=== PATIENT | male | born 1980 | race African-American/Black ===

== ENCOUNTER 2016-12-18 14:57 | Outpatient (CLI) | payer OTHER ==
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
== END 2016-12-18 14:58 | disposition home or self-care (01) ==
LOC: MRI 14:57
PROVIDERS: ATTEND Family Medicine
DX: S63.501D Unspecified sprain of right wrist, subsequent encounter (principal)

== ENCOUNTER 2018-02-09 23:17 | Observation (INO) | payer BC, OTHER ==
[~2018-02-09 23:17] MED LIST: Iopamidol 370 76% 100 ML VIAL ONE
[2018-02-09 23:49] LABS: #Basophils 0.1 thou/uL (0.0-0.2); #Eosinphils 0.1 thou/uL (0.0-0.7); #Lymphocytes 3.6 thou/uL (1.20-3.40); #Monocytes 0.8 thou/uL (0.11-0.59); %Basophils 1.2 % (0.0-1.0); %Eosinophils 0.8 % (0.0-10.0); %Lymphocytes 41.9 % (21.0-51.0); %Monocytes 9.2 % (0.0-10.0); Hemoglobin 14.9 g/dL (14.0-18.0); Mean Corpuscular HGB CONC 33.8 g/dL (32.0-36.0); Mean Corpuscular Hemoglobin 32.7 pg (27.0-31.0); Mean Corpuscular Volume 96.7 fL (78.0-98.0); Mean Platelet Volume 7.6 fL (7.4-10.4); Platelet Count 200 thou/uL (130-400); RBC Distribution Width 13.8 % (11.5-14.5); Red Blood Cell (RBC) Count 4.57 mill/uL (4.70-6.10); White Blood Cell (WBC) Count 8.6 thou/uL (4.8-10.8)
[2018-02-09] MEDS ORDERED: Fluorescein Opthalmic Strip ONE (23:56)
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
[2018-02-09] MEDS ORDERED: Proparacaine 0.5% Opth 15 ML BOT ONE (23:57)
[2018-02-09] MEDS ORDERED: Adacel (T-DAP) 0.5 ML SYRINGE ONE (23:57)
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
[2018-02-10] MEDS ORDERED: Dextrose 5% in Water 1,000 ML IV PRN (00:27)
[2018-02-10] MEDS ORDERED: Ondansetron ODT 4 MG TAB PO PRN (00:27)
[2018-02-10] MEDS ORDERED: Dextrose 50% Abboject 50 ML SYRINGE SLOW IVP PRN (00:27)
[2018-02-10] MEDS ORDERED: traMADol HCl 50 MG TAB PO PRN (00:30)
[2018-02-10] MEDS ORDERED: traMADol HCl 50 MG TAB PO SCH (00:30)
[2018-02-10] MEDS ORDERED: HYDROcodone/Acetaminophen 10/325 mg Tablet PO PRN (00:30)
[2018-02-10] MEDS ORDERED: Rib Fracture Protocol PO SCH (00:30)
[2018-02-10 00:37] LABS: INR-International Normal Ratio 1.1; PTT 31.7 SEC (22.9-36.1)
[2018-02-10] MEDS ORDERED: Cyclobenzaprine 10 MG TAB PO PRN (00:45)
[2018-02-10 00:49] LABS: ALT (SGPT) 49 U/L (8-55); AST (SGOT) 41 U/L (5-34); Albumin 4.5 g/dL (3.5-5.0); Alcohol Less than 10 mg/dL (Less than 10); Alkaline Phosphatase 46 U/L (40-150); Anion Gap 13 mmol/L (10-20); BUN (Urea Nitrogen) 19 mg/dL (8.9-20.6); Bilirubin, Total 0.9 mg/dL (0.2-1.2); Calc. Creatinine Clearance 0 mL/min (70-130); Calcium 9.6 mg/dL (7.8-10.44); Carbon Dioxide 24 mmol/L (22-29); Chloride 103 mmol/L (98-107); Estimated GFR-MDRD 75; Globulin 3.1 g/dL (2.4-3.5); Glucose 98 mg/dL (70-105); Lipase 56 U/L (8-78); Protein, Total 7.6 g/dL (6.0-8.3); Sodium 136 mmol/L (136-145)
[2018-02-10] MEDS ORDERED: HYDROcodone/Acetaminophen 5/325 mg Tablet ONE (00:58)
[2018-02-10] MEDS ORDERED: Ciprofloxacin 0.3% Ophth Drops 2.5 ml Bottle R EYE SCH (01:30)
[2018-02-10] MEDS: Acetaminophen 325 MG TAB PO SCH ×3 (02:14→14:01)
[2018-02-10 03:24] VITALS: BMI 28.4
[2018-02-10] MEDS ORDERED: Acetaminophen 500 MG TAB PO SCH (06:00)
[2018-02-10] MEDS: Ibuprofen 800 MG TAB PO SCH ×3 (06:10→17:51)
[2018-02-10] MEDS: traMADol HCl 50 MG TAB PO SCH ×3 (06:10→17:51)
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
[2018-02-10] MEDS ORDERED: Famotidine 20 MG TAB PO SCH (09:00)
[2018-02-10] MEDS ORDERED: Tamsulosin HCl 0.4 MG CAP PO SCH (09:00)
[2018-02-10] MEDS: Gabapentin 300 MG CAP PO SCH ×2 (10:02→16:56)
[2018-02-10] MEDS: Ciprofloxacin 0.3% Ophth Drops 2.5 ml Bottle R EYE SCH ×3 (10:05→17:51)
[2018-02-10 15:57] VITALS: BP 100/61; TEMP 97.9
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
--- NOTE | 2018-02-12 12:31 | EKG ---
Test Reason : Blood Pressure : / mmHG Vent. Rate : 076 BPM Atrial Rate : 076 BPM P-R Int : 176 ms QRS Dur : 104 ms QT Int : 376 ms P-R-T Axes : 066 -30 051 degrees QTc Int : 423 ms Normal sinus rhythm Left axis deviation Abnormal ECG Confirmed by ANNIE MELARA ([id number]), multimedia editor MAYURI OQUENDO ([id number]) on 02/12/2018 12:30:53 PM Referred By: Confirmed By:ANNIE MELARA
== END 2018-02-10 17:59 | disposition home or self-care (01) ==
LOC: ERS 23:17 → SJJU 02-10 00:07
PROVIDERS: ADMIT Surgery; ATTEND Surgery
DX: S22.31XA Fracture of one rib, right side, initial encounter for closed fracture (principal); J93.9 Pneumothorax, unspecified; S05.31XA Ocular laceration without prolapse or loss of intraocular tissue, right eye, initial encounter; F17.210 Nicotine dependence, cigarettes, uncomplicated; G47.00 Insomnia, unspecified; Z79.899 Other long term (current) drug therapy; G89.11 Acute pain due to trauma; V89.2XXA Person injured in unspecified motor-vehicle accident, traffic, initial encounter; Y92.411 Interstate highway as the place of occurrence of the external cause
CPT/HCPCS: 36415; 70450; 71045; 71260; 72125; 74177; 80053; 80307; 83605; 83690; 85025; 85610; 85730; 90471; 90715; 93005; 94640; G0378; G0390; J7620